=== PATIENT | female | born 1950 | race Caucasian/White ===

== ENCOUNTER 2018-08-21 07:01 | Emergency (ER) | payer MEDICARE ==
[2018-08-21 07:17] VITALS: BP 148/102
--- NOTE | 2018-08-21 07:22 | UC ---
Abdominal Pain Female HPI - HPI Summary HPI Summary: Abdominal pain x 1 day severe abdominal pain since last night , pain is diffuse , severe 10 out of 10 , no radiation worse with movements or eating , nothing makes it better + nausea and vomiting no diarrhea , no constipation , no fever, + chills - History of Current Complaint Stated Complaint: ABD PAIN,VOMITING Time Seen by Provider: 08/21/18 07:07 Hx Obtained From: Patient Onset/Duration: Gradual Onset, Lasting Days - 1, Still Present Timing: Constant Severity Initially: Moderate Severity Currently: Severe Pain Intensity: 5 Location: Diffuse Radiates: No Character: Cramping Aggravating Factor(s): Food, Movement Alleviating Factor(s): Nothing Associated Signs and Symptoms: Positive: Decreased Appetite, Nausea, Vomiting, Other: - short of breath. Negative: Fever, Cough, Chest Pain, Dizzy, Back Pain , Constipation, Blood in Stool, Urinary Symptoms, Vaginal Bleeding, Vaginal Discharge, Diarrhea Allergies/Adverse Reactions: Allergies Allergy/AdvReac Type Severity Reaction Status Date / Time No Known Allergies Allergy Verified 08/21/18 07:12 Home Medications: Home Medications Ascorbic Acid TAB* [Vitamin C TAB*] 1,000 mg PO DAILY 08/21/18 [History Confirmed 08/21/18] sulfaSALAzine TAB* [Azulfidine TAB*] 1,500 mg PO BID AC 08/21/18 [History Confirmed 08/21/18] PMH/Surg Hx/FS Hx/Imm Hx - Additional Past Medical History Additional PMH: RA Endocrine History: Thyroid Disease Cancer History: Breast Cancer, Other - Thyroid ca - Surgical History Surgical History: Yes Surgery Procedure, Year, and Place: lumpectomy, colostomy & reversal - Family History Known Family History: Positive: Cardiac Disease - Social History Alcohol Use: Occasionally Substance Use Type: None Smoking Status (MU): Former Smoker Length of Time of Smoking/Using Tobacco: 3 Years When Did the Patient Quit Smoking/Using Tobacco: 1979 Review of Systems All Other Systems Reviewed And Are Negative: Yes Constitutional: Positive: Chills, Fatigue Skin: Positive: Negative Eyes: Positive: Negative ENT: Positive: Negative Respiratory: Positive: Shortness Of Breath Cardiovascular: Positive: Negative Gastrointestinal: Positive: Abdominal Pain, Vomiting, Nausea. Negative: Diarrhea Genitourinary: Positive: Negative Is Patient Immunocompromised?: No Physical Exam Triage Information Reviewed: Yes Appearance: Well-Nourished, Ill-Appearing, Pain Distress Vital Signs: Initial Vital Signs Temp 97 F 08/21/18 07:14 Pulse 128 08/21/18 07:14 Resp 32 08/21/18 07:14 BP 148/102 08/21/18 07:14 Pulse Ox 99 08/21/18 07:14 Vital Signs Reviewed: Yes Eye Exam: Normal Eyes: Positive: Conjunctiva Clear ENT Exam: Normal ENT: Positive: Normal ENT inspection, Hearing grossly normal, Pharynx normal Neck exam: Normal Neck: Positive: Supple, Nontender, No Lymphadenopathy Respiratory: Positive: Chest non-tender, Lungs clear, Normal breath sounds Cardiovascular: Positive: Tachycardia Abdomen Description: Positive: Soft, Guarding, Other: - severe diffuse tenderness. Negative: Bruit, CVA Tenderness (R), CVA Tenderness (L), Distended , Hernia @, Hepatomegaly Bowel Sounds: Positive: Present Musculoskeletal Exam: Normal Musculoskeletal: Positive: Strength Intact, ROM Intact, No Edema Skin Exam: Normal Diagnostics - EKG Cardiac Rate: Tachycardia Cardiac Rhythm: Sinus: Normal Ectopy: None ST Segment: Normal Abd Pain Female Course/Dx - Course Course Of Treatment: severe diffuse abdominal pain , tachycardia , nausea and vomiting. concern about SBO. please go to [facility] for evaluation and tx - Differential Dx/Diagnosis Provider Diagnosis: Abdominal pain Discharge - Sign-Out/Discharge Documenting (check all that apply): Patient Departure All imaging exams completed and their final reports reviewed: No Studies - Discharge Plan Condition: Fair Disposition: TRANS HIGHER LVL OF CARE FAC Referrals: Cait Ornelas MD [Primary Care Provider] - - Billing Disposition and Condition Condition: FAIR Disposition: Trans Higher Lvl of Care Fac
== END 2018-08-21 07:30 | disposition short-term general hospital (02) ==
LOC: UCCORT 07:01
DX: R10.84 Generalized abdominal pain (principal); Z87.891 Personal history of nicotine dependence
CPT/HCPCS: 93005; 99212; G0463